=== PATIENT | male | born 1990 | race Caucasian/White ===

== ENCOUNTER 2023-01-15 22:15 | Emergency (ER) | payer MEDICAID, SELFPAY ==
[2023-01-15 22:21] VITALS: BP 146/100; PULSE 92; RESP 18; TEMP 36.7; O2SAT 97; BMI 37.0
[2023-01-15] MEDS: Ondansetron ODT 4 MG TAB.RAPDIS TRANSLINGU (22:30)
--- NOTE | 2023-01-15 22:30 | PC.NURSE ---
Pt with large emesis. 4mg ODT zofran administered. Also relates headache.
--- NOTE | 2023-01-15 23:39 | ED.OVERDOSE ---
HPI - Overdose General Chief Complaint: Overdose Stated Complaint: Od Time Seen by Provider: 01/15/23 23:13 Source: patient Mode of arrival: ambulatory Limitations: no limitations History of Present Illness HPI Narrative: Patient comes to the emergency room by ambulance, patient accidentally overdose. Patient states that he has not used heroin for a long time, patient thought he was snorting heroin but he thinks there was fentanyl in it. EMS reports that the patient's girlfriend gave him 4 mg intranasal Narcan. Patient was awake by the time they arrived to the patient's residence. On arrival to the ED, patient is awake and alert x4, calm and cooperative. Patient states that this was an accident, denies suicidal or homicidal ideation. Related Data Allergies Allergy/AdvReac Type Severity Reaction Status Date / Time No Known Allergies Allergy Verified 01/15/23 23:43 Review of Systems Review of Systems: Constitutional : No Weight loss, No Fever, No Chills, No Night Sweats, No Fatigue, No Malaise ENT/Mouth : No Hearing loss, No Ear Pain, No Nasal Congestion, No Sinus Pain, No Hoarseness, No sore throat, No Rhinorrhea, No Swallowing Difficulty Eyes: No Eye Pain, No Swelling, No Redness, No Foreign Body, No Discharge, No Vision Changes Cardiovascular : No Chest Pain, No SOB, No Dyspnea on Exertion, No Orthopnea, No Edema, No Palpitations Respiratory : No Cough, No Sputum, No Wheezing, No Smoke Exposure, No Dyspnea Gastrointestinal : No Nausea, No Vomiting, No Diarrhea, No Constipation, No abdominal Pain, No Hematochezia, No Melena Genitourinary : no irregular bleeding, No Dysuria, No Urinary Frequency, No Hematuria, No Urinary Incontinence, No Urgency, No Flank Pain, No Urinary Flow Changes, No Hesitancy Musculoskeletal : No joint pain, No Myalgias, No Joint Swelling Skin : No Skin Lesions, No rash Neuro : No Weakness, No Numbness, No Paresthesias, No Loss of Consciousness, No Dizziness, No Headache Psych : No Anxiety/Panic, No Depression, No SI/HI/AH/VH, accidental overdose Heme/Lymph: No Bruising, No Bleeding,No Lymphadenopathy Endocrine : No Polyuria, No Polydipsia, No Temperature Intolerance PMFSH Social History Social History Advance Directives: No Advance Directives Information Provided: Yes Physical Exam Vital Signs: Vital Signs: Last Vital Signs Temp 98.1 F 01/15/23 22:21 Pulse 92 01/15/23 22:21 Resp 18 01/15/23 22:21 BP 146/100 H 01/15/23 22:21 Pulse Ox 97 01/15/23 22:21 O2 Del Method Room Air 01/15/23 22:21 BMI result Body Mass Index 37.0 Const: Other: Appearance: Alert. Oriented X3. No acute distress. Eyes: Pupils equal, round and reactive to light. ENT: Pharynx normal. Neck: Normal inspection. Neck supple. No lymph nodes noted. No crepitus CVS: Normal heart rate and rhythm. Pulses normal. Normal S1 and S2 Respiratory: No respiratory distress. Breath sounds normal. No Wheezing. No rales Abdomen: Soft and nontender. No rigidity. No distention. Skin: Skin warm and dry. Normal skin color. Normal skin turgor. Extremities: No lower extremity edema. No Lacerations. No Rash Neuro: Oriented X 3. No motor deficit. No sensory deficit. Moving all extremities. No slurred speech. CN 2 through 12 grossly intact Psych: calm, cooperative, normal affect Medical Decision Making Medical Decision Making MDM Narrative: -patient is awake, alert oriented x4,, comparative. -vital signs stable, oxygen saturation 97% on room air. Patient ambulatory steady without any assistance. -patient denied sude/care consult. -patient provided with home Narcan. -Patient ready for discharge Discharge Plan Discharge Clinical Impression: Drug overdose Patient Disposition: Home, Self-Care Instructions: Adult Overdose (ED) Additional Instructions: Please follow-up with your primary care physician tomorrow. If you have any worsening or new symptoms, please return to the emergency room or call 911
[2023-01-15 23:46] VITALS: BP 127/70; PULSE 76; RESP 18; O2SAT 98
[2023-01-15] MEDS: Ibuprofen 600 MG TABLET PO (23:56)
[2023-01-15] MEDS: Naloxone HCl Nasal TAKE HOME 4 MG SPRAY NOSTRILALT (23:56)
== END 2023-01-16 00:05 | disposition home or self-care (01) ==
PROVIDERS: Emergency Provider Emergency Medicine; PCP Internal Medicine
DX: R51.9 Headache, unspecified (principal); T40.1X1A Poisoning by heroin, accidental (unintentional), initial encounter; Y92.9 Unspecified place or not applicable
CPT/HCPCS: 99284; 99285